=== PATIENT | male | born 1950 | race Caucasian/White ===

== ENCOUNTER 2024-06-27 10:37 | Outpatient (RCR) | payer MEDICARE, SELFPAY ==
[2024-06-12 09:35] LABS: Iron 99 ug/dl (49-181)
[2024-06-12 10:11] LABS: Ferritin 18.1 ng/ml (17.9-464.0)
[2024-06-27] MEDS: INJECTAFER 265 MG IV (11:25)
[2024-06-27 11:28] VITALS: BP 138/65
[2024-06-27 12:13] VITALS: BP 135/72
[2024-06-27 12:30] VITALS: BP 146/64
== END 2024-07-09 23:59 | disposition home or self-care (01) ==
LOC: OID 10:37
PROVIDERS: ATTENDING PHYSICIAN Psychiatry & Neurology Neurology; FAMILY PHYSICIAN Family Medicine
DX: G20.A1 Parkinson's disease without dyskinesia, without mention of fluctuations (principal); G25.81 Restless legs syndrome; R79.0 Abnormal level of blood mineral
CPT/HCPCS: 36415; 82728; 83540; 96365; J1439